=== PATIENT | female | born 1995 | race Caucasian/White ===

== ENCOUNTER 2024-01-24 18:33 | Outpatient (REF) | payer BC, SELFPAY ==
[2024-01-24 12:17] LABS: HCT 46.3 % (36.0-46.0); HGB 15.4 g/dL (11.2-15.7); MCH 29.4 pg (27.0-33.0); MCHC 33.3 % (32.0-36.0); MCV 88 fL (80-95); MPV 10.7 fL (8.0-11.0); Platelet Count 256 10^3/uL (130-400); RBC 5.24 10^6/uL (3.93-5.22); RDW 12.2 % (11.7-14.6); RDW-SD 39.7 fL; WBC 4.89 10^3/uL (4.4-10.8)
[2024-01-24 12:36] LABS: TSH (W/Ref FT4) 3.19 uIU/mL (0.36-3.74)
[2024-01-25 21:43] LABS: Hepatitis C Ab w Rflx HCV PCR Negative (Negative)
[2024-01-25 21:44] LABS: HIV-1/2 Ag & Ab Screen Negative (Negative)
== END 2024-01-24 18:34 | disposition home or self-care (01) ==
LOC: LBN 18:33
PROVIDERS: PCP Nurse Practitioner Family; Visit Provider Nurse Practitioner Family
DX: R53.83 Other fatigue (principal); Z11.59 Encounter for screening for other viral diseases; Z11.4 Encounter for screening for human immunodeficiency virus [HIV]; Z23 Encounter for immunization; L01.00 Impetigo, unspecified
CPT/HCPCS: 85027; 86803; 87389; 84443